=== PATIENT | female | born 1995 ===

== ENCOUNTER 2024-05-31 18:20 | Emergency (ER) | payer SELFPAY ==
[2024-05-31 18:26] VITALS: BP 152/121; PULSE 72; RESP 14; TEMP 36.3; O2SAT 100
--- NOTE | 2024-05-31 18:43 | ED.EPISTAXIS ---
HPI - Epistaxis General Chief complaint: Epistaxis Stated complaint: epistaxis Time Seen by Provider: 05/31/24 18:43 Focused HPI: This is a 28 year old female that presents to the ER for nosebleed. Reports she was seen at [facility], had a rhino rocket placed today. Reports it is painful. Reports she has continued to have bleeding. She feels weak. GENERAL: Well-appearing, well-nourished, and in no acute distress. HEAD: Normocephalic, atraumatic. CHEST: Clear to auscultation. ?No respiratory distress. HEART: Regular rate and rhythm.? NEURO: ?Alert and oriented x3. Patient screened in triage and initial orders placed.? ?Additional care and disposition to be based upon?diagnostic testing and treatment. Related Data Allergies Allergy/AdvReac Type Severity Reaction Status Date / Time No Known Allergies Allergy Verified 05/31/24 18:21 Course Vital Signs Vital signs: Vital Signs Temperature 97.4 F L 05/31/24 18:26 Pulse Rate 72 05/31/24 18:26 Respiratory Rate 14 05/31/24 18:26 Blood Pressure 152/121 H 05/31/24 18:26 Pulse Oximetry 100 05/31/24 18:26 Oxygen Delivery Room Air 05/31/24 18:26 Temperature 97.4 F L 05/31/24 18:26 Pulse Rate 72 05/31/24 18:26 Respiratory Rate 14 05/31/24 18:26 Blood Pressure 152/121 H 05/31/24 18:26 Pulse Oximetry 100 05/31/24 18:26 Oxygen Delivery Room Air 05/31/24 18:26 Discharge Plan Discharge Clinical Impression: Epistaxis Patient Disposition: Elopement After Seen by Prov Condition: Stable Patient Language: Armenian Follow-up/Referrals: PHYSICIAN,SAUSAGE ME[employer] TRIMMER [Primary Care Provider] -
--- NOTE | 2024-05-31 20:26 | PC.NURSE ---
pt seen walking out of the department and getting into car and driving off property
== END 2024-05-31 20:26 | disposition left against medical advice (07) ==
LOC: ANHED 20:57
PROVIDERS: Emergency Provider Physician Assistant
DX: R04.0 Epistaxis (principal)
CPT/HCPCS: 99281